=== PATIENT | male | born 1935 | race Hispanic/Latino ===

== ENCOUNTER 2017-10-18 11:56 | Emergency (ER) | payer MEDICARE ==
[2017-10-18 14:22] LABS: APPEARANCE,URINE Clear (CLEAR); BILIRUBIN,URINE Negative (NEGATIVE); COLOR,URINE Yellow (YELLOW); GLUCOSE, URINE (UA) >=1000 mg/dL (NEGATIVE); KETONES,URINE Negative (NEGATIVE); LEUKOCYTE ESTERASE ,URINE Negative (NEGATIVE); NITRATE,URINE Negative (NEGATIVE); OCCULT BLOOD,URINE Negative (NEGATIVE); PH,URINE 5.5 (5.0-8.0); PROTEIN,URINE Negative (NEGATIVE)
[2017-10-18 14:43] LABS: BACTERIA,URINE Rare /HPF (None Seen); RBC,URINE 0-1 /HPF (0-1); SQUAMOUS EPITHELIAL CELL,UR Rare /HPF (0-2); WBC,URINE 0-1 /HPF (0-1)
== END 2017-10-18 15:32 | disposition home or self-care (01) ==
LOC: EDH 11:56
DX: M54.32 Sciatica, left side (principal); E11.9 Type 2 diabetes mellitus without complications; I10 Essential (primary) hypertension; Z88.6 Allergy status to analgesic agent; Z98.890 Other specified postprocedural states
CPT/HCPCS: 72131; 81001

== ENCOUNTER 2018-04-13 14:36 | Emergency (ER) | payer MEDICARE ==
[~2018-04-13 14:36] MED LIST: ASPI-1181 PO; ATOR20TA65 PO; CLOP75TA14 PO; FINA5TAB41 PO; GLIP5TAB11 PO; METF-445 PO; METO50TA18 PO; METR500T4 PO; MONT10TA24 PO; PANT40TA PO; SIME80TA29 PO; TRAM50TA4 PO
[2018-04-13 15:13] LABS: BASOPHILS % (AUTO) 1.2 % (0.0-5.0); EOSINOPHILS % (AUTO) 16.7 % (0.0-8.0); HEMATOCRIT 45.4 % (42-54); LYMPHOCYTES % (AUTO) 20.6 % (21.0-51.0); MEAN CORPUSCULAR HEMOGLOBIN 28.2 pg (27.0-33.0); MEAN CORPUSCULAR VOLUME 85.5 fL (79-99); MONOCYTES % (AUTO) 9.9 % (3.0-13.0); NEUTROPHILS % (AUTO) 51.6 % (40.0-77.0); NUCLEATED RED BLOOD CELLS 0.1 % (0.0-0.19); PLATELET COUNT (AUTO) 178 K/uL (130-400); RED BLOOD CELL COUNT(AUTO) 5.31 MIL/uL (4.50-6.20); RED CELL DISTRIBUTION WIDTH 15.7 % (11.0-15.5); WHITE BLOOD COUNT (AUTO) 5.5 K/uL (4.8-10.8)
[2018-04-13 15:27] LABS: CREATININE 0.9 mg/dL (0.5-1.5); POTASSIUM 3.1 mmol/L (3.5-5.1)
[2018-04-13 15:28] LABS: B-TYPE NATRIURETIC PEPTIDE 97 pg/mL (0-100)
[2018-04-13 15:29] LABS: ALBUMIN 2.4 g/dL (3.5-5.0); BILIRUBIN,TOTAL 0.6 mg/dL (0.2-1.0); TOTAL PROTEIN, SERUM 5.6 g/dL (6.0-8.3)
[2018-04-13] MEDS ORDERED: ONDANSETRON HCL 4 MG/2 ML VIAL ONE (15:46)
[2018-04-13] MEDS ORDERED: MORPHINE SULFATE 4 MG/1ML SYG ONE (15:46)
[2018-04-13] MEDS ORDERED: POTASSIUM BICARB/CIT AC 25 MEQ TABLET.EFF ONE (15:46)
[2018-04-13] MEDS ORDERED: SODIUM CHLORIDE 0.9% 500ML 500 ML IV ONE (15:47)
[2018-04-13] MEDS ORDERED: MAGNESIUM 2GM PREMIX 50ML 50 ML IV ONE (17:04)
== END 2018-04-13 20:32 | disposition home or self-care (01) ==
LOC: EDH 14:36
DX: G89.29 Other chronic pain (principal); M54.5 Low back pain; F03.90 Unspecified dementia, unspecified severity, without behavioral disturbance, psychotic disturbance, mood disturbance, and anxiety; E11.9 Type 2 diabetes mellitus without complications; L29.9 Pruritus, unspecified; E78.5 Hyperlipidemia, unspecified; I10 Essential (primary) hypertension; K21.9 Gastro-esophageal reflux disease without esophagitis; I25.10 Atherosclerotic heart disease of native coronary artery without angina pectoris; Z88.6 Allergy status to analgesic agent
CPT/HCPCS: 36415; 71045; 72131; 80053; 83735; 83880; 84484; 85025; 93005; 96365; 96375; 99285; J2270; J2405; J3475; J7040

== ENCOUNTER 2018-04-21 16:41 | Emergency (ER) | payer MEDICARE ==
[2018-04-21 17:15] LABS: BASOPHILS % (AUTO) 1.3 % (0.0-5.0); EOSINOPHILS % (AUTO) 13.8 % (0.0-8.0); HEMATOCRIT 45.1 % (42-54); LYMPHOCYTES % (AUTO) 14.4 % (21.0-51.0); MEAN CORPUSCULAR HEMOGLOBIN 28.1 pg (27.0-33.0); MEAN CORPUSCULAR HGB CONC 32.8 g/dL (32.0-36.0); MEAN CORPUSCULAR VOLUME 85.7 fL (79-99); MONOCYTES % (AUTO) 7.2 % (3.0-13.0); NEUTROPHILS % (AUTO) 63.3 % (40.0-77.0); PLATELET COUNT (AUTO) 204 K/uL (130-400); RED BLOOD CELL COUNT(AUTO) 5.26 MIL/uL (4.50-6.20); WHITE BLOOD COUNT (AUTO) 6.6 K/uL (4.8-10.8)
[2018-04-21] MEDS ORDERED: BISACODYL 10 MG SUPP.RECT RC ONE (17:20)
[2018-04-21 17:27] LABS: CREATININE 1.1 mg/dL (0.5-1.5); POTASSIUM 4.1 mmol/L (3.5-5.1)
[2018-04-21 17:31] LABS: ALBUMIN 2.4 g/dL (3.5-5.0); BILIRUBIN,TOTAL 0.5 mg/dL (0.2-1.0); TOTAL PROTEIN, SERUM 5.6 g/dL (6.0-8.3)
[2018-04-21 21:22] LABS: APPEARANCE,URINE Clear (CLEAR); BILIRUBIN,URINE Small (NEGATIVE); COLOR,URINE Dark Yellow (YELLOW); GLUCOSE, URINE (UA) Negative (NEGATIVE); KETONES,URINE Trace mg/dL (NEGATIVE); LEUKOCYTE ESTERASE ,URINE Trace (NEGATIVE); NITRATE,URINE Negative (NEGATIVE); OCCULT BLOOD,URINE Negative (NEGATIVE); PROTEIN,URINE Trace (NEGATIVE)
[2018-04-21 21:31] LABS: BACTERIA,URINE Few /HPF (None Seen); RBC,URINE 0-1 /HPF (0-1)
[2018-04-21 21:33] LABS: SQUAMOUS EPITHELIAL CELL,UR None Seen /HPF (0-2)
== END 2018-04-21 21:30 | disposition home or self-care (01) ==
LOC: EDH 16:41
DX: K59.03 Drug induced constipation (principal); R50.9 Fever, unspecified; I25.10 Atherosclerotic heart disease of native coronary artery without angina pectoris; K21.9 Gastro-esophageal reflux disease without esophagitis; E78.5 Hyperlipidemia, unspecified; I10 Essential (primary) hypertension; E11.9 Type 2 diabetes mellitus without complications; Z88.6 Allergy status to analgesic agent
CPT/HCPCS: 36415; 74018; 80053; 81001; 83690; 85025; 87088

== ENCOUNTER 2018-05-10 06:26 | Emergency (ER) | payer MEDICARE ==
[2018-05-10 06:49] LABS: BASOPHILS % (AUTO) 1.3 % (0.0-5.0); EOSINOPHILS % (AUTO) 19.1 % (0.0-8.0); HEMATOCRIT 42.2 % (42-54); LYMPHOCYTES % (AUTO) 23.2 % (21.0-51.0); MEAN CORPUSCULAR HEMOGLOBIN 27.9 pg (27.0-33.0); MEAN CORPUSCULAR HGB CONC 32.8 g/dL (32.0-36.0); MEAN CORPUSCULAR VOLUME 85.2 fL (79-99); MONOCYTES % (AUTO) 6.5 % (3.0-13.0); NEUTROPHILS % (AUTO) 49.9 % (40.0-77.0); NUCLEATED RED BLOOD CELLS 0.1 % (0.0-0.19); PLATELET COUNT (AUTO) 222 K/uL (130-400); RED BLOOD CELL COUNT(AUTO) 4.96 MIL/uL (4.50-6.20); RED CELL DISTRIBUTION WIDTH 17.7 % (11.0-15.5); WHITE BLOOD COUNT (AUTO) 6.9 K/uL (4.8-10.8)
[2018-05-10 06:57] LABS: CREATININE 0.8 mg/dL (0.5-1.5); POTASSIUM 3.1 mmol/L (3.5-5.1)
[2018-05-10 07:03] LABS: ALBUMIN 2.5 g/dL (3.5-5.0); BILIRUBIN,TOTAL 0.6 mg/dL (0.2-1.0); TOTAL PROTEIN, SERUM 5.3 g/dL (6.0-8.3)
[2018-05-10] MEDS ORDERED: OXYMETAZOLINE HCL SPRAY 15 ML BOTTLE ONE (07:27)
[2018-05-10] MEDS ORDERED: POTASSIUM BICARB/CIT AC 25 MEQ TABLET.EFF ONE (07:28)
[2018-05-10] MEDS ORDERED: IPRATROPIUM/ALBUTEROL SULFATE 3 ML SOLUTION IH ONE (07:34)
[2018-05-10 07:41] LABS: B-TYPE NATRIURETIC PEPTIDE 101 pg/mL (0-100)
[2018-05-10 09:28] LABS: APPEARANCE,URINE Clear (CLEAR); BILIRUBIN,URINE Negative (NEGATIVE); COLOR,URINE Yellow (YELLOW); GLUCOSE, URINE (UA) Negative (NEGATIVE); KETONES,URINE Negative (NEGATIVE); LEUKOCYTE ESTERASE ,URINE Trace (NEGATIVE); NITRATE,URINE Negative (NEGATIVE); OCCULT BLOOD,URINE Negative (NEGATIVE); PROTEIN,URINE Negative (NEGATIVE)
[2018-05-10 09:43] LABS: BACTERIA,URINE Rare /HPF (None Seen); RBC,URINE 0-1 /HPF (0-1); SQUAMOUS EPITHELIAL CELL,UR Rare /HPF (0-2); WBC,URINE 0-1 /HPF (0-1)
== END 2018-05-10 10:50 | disposition home or self-care (01) ==
LOC: EDH 06:26
DX: J98.8 Other specified respiratory disorders (principal); E87.6 Hypokalemia; E11.9 Type 2 diabetes mellitus without complications; I25.10 Atherosclerotic heart disease of native coronary artery without angina pectoris; K21.9 Gastro-esophageal reflux disease without esophagitis; E78.5 Hyperlipidemia, unspecified; Z88.6 Allergy status to analgesic agent
CPT/HCPCS: 36415; 71045; 80053; 81001; 83880; 84484; 85025; 87804; 93005; 94640

== ENCOUNTER 2018-05-15 18:05 | Emergency (ER) | payer MEDICARE ==
[2018-05-15 18:49] LABS: BASOPHILS % (AUTO) 0.1 % (0.0-5.0); EOSINOPHILS % (AUTO) 23.3 % (0.0-8.0); HEMATOCRIT 40.5 % (42-54); MEAN CORPUSCULAR HEMOGLOBIN 28.7 pg (27.0-33.0); MEAN CORPUSCULAR HGB CONC 33.4 g/dL (32.0-36.0); NEUTROPHILS % (AUTO) 50.6 % (40.0-77.0); PLATELET COUNT (AUTO) 239 K/uL (130-400); RED BLOOD CELL COUNT(AUTO) 4.71 MIL/uL (4.50-6.20); WHITE BLOOD COUNT (AUTO) 6.9 K/uL (4.8-10.8)
[2018-05-15] MEDS ORDERED: IPRATROPIUM/ALBUTEROL SULFATE 3 ML SOLUTION IH ONE (18:52)
[2018-05-15 19:04] LABS: CREATININE 0.8 mg/dL (0.5-1.5); POTASSIUM 3.8 mmol/L (3.5-5.1)
[2018-05-15] MEDS ORDERED: METHYLPREDNISOLONE SOD SUCC 125MG/2ML VIAL ONE (19:21)
== END 2018-05-15 22:45 | disposition home or self-care (01) ==
LOC: EDH 18:05
DX: J98.01 Acute bronchospasm (principal); J11.1 Influenza due to unidentified influenza virus with other respiratory manifestations; J32.9 Chronic sinusitis, unspecified; I10 Essential (primary) hypertension; E78.5 Hyperlipidemia, unspecified; K21.9 Gastro-esophageal reflux disease without esophagitis; E11.9 Type 2 diabetes mellitus without complications; I25.10 Atherosclerotic heart disease of native coronary artery without angina pectoris; Z88.6 Allergy status to analgesic agent; Z87.891 Personal history of nicotine dependence
CPT/HCPCS: 36415; 71045; 80048; 85025; 87804 ×2; 93005; 94640; 96374; 99285; J2930

== ENCOUNTER 2018-06-12 14:49 | Emergency (ER) | payer MEDICARE ==
[2018-06-12 15:42] LABS: BASOPHILS % (AUTO) 1.1 % (0.0-5.0); EOSINOPHILS % (AUTO) 23.6 % (0.0-8.0); HEMATOCRIT 43.6 % (42-54); LYMPHOCYTES % (AUTO) 21.6 % (21.0-51.0); MEAN CORPUSCULAR HEMOGLOBIN 29.1 pg (27.0-33.0); MEAN CORPUSCULAR HGB CONC 33.1 g/dL (32.0-36.0); MONOCYTES % (AUTO) 5.6 % (3.0-13.0); NEUTROPHILS % (AUTO) 48.1 % (40.0-77.0); NUCLEATED RED BLOOD CELLS 0.1 % (0.0-0.19); PLATELET COUNT (AUTO) 228 K/uL (130-400); RED BLOOD CELL COUNT(AUTO) 4.96 MIL/uL (4.50-6.20); RED CELL DISTRIBUTION WIDTH 19.1 % (11.0-15.5); WHITE BLOOD COUNT (AUTO) 8.3 K/uL (4.8-10.8)
[2018-06-12 15:56] LABS: CREATININE 0.8 mg/dL (0.5-1.5)
[2018-06-12 15:57] LABS: INR 1.03 (0.85-1.15); PARTIAL THROMBOPLASTIN TIME 34.5 SEC (26.3-35.5); PROTHROMBIN TIME 10.8 SEC (9.6-11.6)
[2018-06-12 16:00] LABS: BILIRUBIN,TOTAL 0.3 mg/dL (0.2-1.0); TOTAL PROTEIN, SERUM 6.3 g/dL (6.0-8.3)
== END 2018-06-12 19:59 | disposition home or self-care (01) ==
LOC: EDH 14:49
CPT/HCPCS: 36415; 71045; 80053; 82550; 83880; 84484; 85025; 85610; 85730; 87804; 93005

== ENCOUNTER 2018-10-28 12:55 | Inpatient (IN) | payer MEDICARE | END 2018-11-02 20:45 | disposition home or self-care (01) | LOC: EDH 12:55 → EDHIP 15:00 → 3AH 17:16 | DX: J44.1 Chronic obstructive pulmonary disease with (acute) exacerbation (principal); J96.90 Respiratory failure, unspecified, unspecified whether with hypoxia or hypercapnia ==

== ENCOUNTER 2019-01-31 12:53 | Emergency (ER) | payer MEDICARE ==
[~2019-01-31 12:53] MED LIST changes: -ASPI-1181 PO; +DOCU100C33 PO; +DONE10TA43 PO; -GLIP5TAB11 PO; -METR500T4 PO; -MONT10TA24 PO; -PANT40TA PO; -SIME80TA29 PO; -TRAM50TA4 PO
[2019-01-31] MEDS ORDERED: IPRATROPIUM/ALBUTEROL SULFATE 3 ML SOLUTION IH ONE ×2 (13:17→14:23)
[2019-01-31 13:39] LABS: BASOPHILS % (AUTO) 0.4 % (0.0-5.0); EOSINOPHILS % (AUTO) 19.2 % (0.0-8.0); LYMPHOCYTES % (AUTO) 20.1 % (21.0-51.0); MEAN CORPUSCULAR HGB CONC 33.5 g/dL (32.0-36.0); MEAN CORPUSCULAR VOLUME 92.4 fL (79-99); MONOCYTES % (AUTO) 8.3 % (3.0-13.0); NUCLEATED RED BLOOD CELLS 0.1 % (0.0-0.19); PLATELET COUNT (AUTO) 166 K/uL (130-400); RED BLOOD CELL COUNT(AUTO) 4.55 MIL/uL (4.50-6.20); WHITE BLOOD COUNT (AUTO) 5.2 K/uL (4.8-10.8)
[2019-01-31 13:45] LABS: CREATININE 0.8 mg/dL (0.5-1.5); POTASSIUM 3.9 mmol/L (3.5-5.1)
[2019-01-31 13:51] LABS: ALBUMIN 3.1 g/dL (3.5-5.0); BILIRUBIN,TOTAL 0.3 mg/dL (0.2-1.0); TOTAL PROTEIN, SERUM 5.7 g/dL (6.0-8.3)
== END 2019-01-31 16:23 | disposition home or self-care (01) ==
LOC: EDH 12:53
DX: J44.1 Chronic obstructive pulmonary disease with (acute) exacerbation (principal); I10 Essential (primary) hypertension; F03.90 Unspecified dementia, unspecified severity, without behavioral disturbance, psychotic disturbance, mood disturbance, and anxiety; I25.10 Atherosclerotic heart disease of native coronary artery without angina pectoris; E11.9 Type 2 diabetes mellitus without complications; K21.9 Gastro-esophageal reflux disease without esophagitis; E78.5 Hyperlipidemia, unspecified; Z88.6 Allergy status to analgesic agent; Z79.84 Long term (current) use of oral hypoglycemic drugs
CPT/HCPCS: 36415; 71045; 80053; 85025; 93005; 94640

== ENCOUNTER → 2019-02-06 | Outpatient (CLI) | payer MEDICARE | END | disposition home or self-care (01) | LOC: RAH 11:16 | PROVIDERS: ATTEND Internal Medicine | DX: S09.90XA Unspecified injury of head, initial encounter (principal); M51.36 Other intervertebral disc degeneration, lumbar region; M50.322 Other cervical disc degeneration at C5-C6 level; M41.86 Other forms of scoliosis, lumbar region; G93.89 Other specified disorders of brain; M48.02 Spinal stenosis, cervical region; M25.511 Pain in right shoulder; M25.512 Pain in left shoulder; W19.XXXA Unspecified fall, initial encounter; Y93.89 Activity, other specified; Y92.89 Other specified places as the place of occurrence of the external cause; Y99.8 Other external cause status | CPT/HCPCS: 70450; 72040; 72100; 73030 ==

== ENCOUNTER 2019-05-21 10:34 | Emergency (ER) | payer MEDICARE ==
[2019-05-21 11:26] LABS: APPEARANCE,URINE Clear (CLEAR); BILIRUBIN,URINE Small (NEGATIVE); COLOR,URINE Dark Yellow (YELLOW); GLUCOSE, URINE (UA) Negative (NEGATIVE); KETONES,URINE Trace mg/dL (NEGATIVE); LEUKOCYTE ESTERASE ,URINE Moderate (NEGATIVE); NITRATE,URINE Negative (NEGATIVE); OCCULT BLOOD,URINE Negative (NEGATIVE); PROTEIN,URINE Negative (NEGATIVE)
[2019-05-21 11:53] LABS: BACTERIA,URINE Few /HPF (None Seen); MUCUS,URINE Moderate LPF (None Seen); RBC,URINE 0-1 /HPF (0-1); SQUAMOUS EPITHELIAL CELL,UR 0-2 /HPF (0-2)
[2019-05-21] MEDS ORDERED: ONDANSETRON ODT 4 MG TAB ONE (11:57)
[2019-05-21] MEDS ORDERED: DIAZEPAM 5 MG TABLET ONE (11:57)
[2019-05-21 12:13] LABS: BASOPHILS % (AUTO) 1.2 % (0.0-5.0); EOSINOPHILS % (AUTO) 12.3 % (0.0-8.0); LYMPHOCYTES % (AUTO) 16.9 % (21.0-51.0); MEAN CORPUSCULAR HEMOGLOBIN 30.7 pg (27.0-33.0); MEAN CORPUSCULAR HGB CONC 33.7 g/dL (32.0-36.0); MEAN CORPUSCULAR VOLUME 91.2 fL (79-99); MONOCYTES % (AUTO) 8.4 % (3.0-13.0); NEUTROPHILS % (AUTO) 61.2 % (40.0-77.0); NUCLEATED RED BLOOD CELLS 0.1 % (0.0-0.19); PLATELET COUNT (AUTO) 185 K/uL (130-400); RED BLOOD CELL COUNT(AUTO) 4.83 MIL/uL (4.50-6.20); RED CELL DISTRIBUTION WIDTH 14.2 % (11.0-15.5); WHITE BLOOD COUNT (AUTO) 5.4 K/uL (4.8-10.8)
[2019-05-21 12:28] LABS: CREATININE 0.9 mg/dL (0.5-1.5); POTASSIUM 3.8 mmol/L (3.5-5.1)
[2019-05-21 12:32] LABS: ALBUMIN 3.3 g/dL (3.5-5.0); BILIRUBIN,DIRECT 0.1 mg/dL (0.0-0.3); BILIRUBIN,TOTAL 0.5 mg/dL (0.2-1.0); TOTAL PROTEIN, SERUM 6.1 g/dL (6.0-8.3)
== END 2019-05-21 14:54 | disposition home or self-care (01) ==
LOC: EDH 10:34
DX: M54.5 Low back pain (principal); R35.0 Frequency of micturition; R10.30 Lower abdominal pain, unspecified; Z88.6 Allergy status to analgesic agent
CPT/HCPCS: 36415; 74176; 80048; 80076; 81001; 83690; 85025

== ENCOUNTER 2019-07-20 04:15 | Emergency (ER) | payer MEDICARE ==
[~2019-07-20 04:15] MED LIST changes: -ATOR20TA65 PO; +CHOL500050 PO; -DOCU100C33 PO; +GUAI600T50 PO; +LEVO500T89 PO; -METO50TA18 PO; +PANT40TA25 PO; +TAMS-1 PO
[2019-07-20] MEDS ORDERED: MORPHINE SULFATE 2 MG/ML 1ML SYG ONE (05:37)
[2019-07-20] MEDS ORDERED: ONDANSETRON HCL 4 MG/2 ML VIAL ONE (05:37)
[2019-07-20] MEDS ORDERED: LIDOCAINE 5% TOPICAL PATCH TP ONE (07:53)
== END 2019-07-20 15:22 | disposition home or self-care (01) ==
LOC: EDH 04:15
DX: S39.012A Strain of muscle, fascia and tendon of lower back, initial encounter (principal); S80.02XA Contusion of left knee, initial encounter; S70.02XA Contusion of left hip, initial encounter; L29.9 Pruritus, unspecified; I10 Essential (primary) hypertension; Z98.890 Other specified postprocedural states; Z87.891 Personal history of nicotine dependence; Z88.6 Allergy status to analgesic agent; W18.39XA Other fall on same level, initial encounter; Y93.01 Activity, walking, marching and hiking; Y92.89 Other specified places as the place of occurrence of the external cause; Y99.8 Other external cause status
CPT/HCPCS: 70450; 73090; 73552; 73562; 74176; 96374; 96375; 99284; J2405